=== PATIENT | female | born 2000 | race Caucasian/White ===

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

== ENCOUNTER 2022-08-16 20:52 | Emergency (ER) | payer OTHER ==
[~2022-08-16] VITALS: Ht 162.6 cm; Wt 79.8 kg
[2022-08-16 21:10] VITALS: BP_SYST 135
--- NOTE | 2022-08-16 21:19 | NUR ---
Patient to ER bed 8 to gown for evaluation. Side rails up.
--- NOTE | 2022-08-16 21:36 | NUR ---
ER at bedside examining patient.
[2022-08-16] MEDS ORDERED: IBUP-1971 PO (21:44)
[2022-08-16] MEDS ORDERED: IBUPROFEN 800 MG TABLET PO ONE (21:45)
--- NOTE | 2022-08-16 21:49 | NUR ---
Patient given written and verbal discharge instructions and verbalizes understanding. ER MD discussed with patient the results and treatment provided. Patient in stable condition. ID arm band removed. Rx of Ibuprofen given. Patient educated on pain management and to follow up with PMD. Pain Scale 4/10. Opportunity for questions provided and answered. Medication side effect fact sheet provided.
[2022-08-16 21:50] VITALS: BP_SYST 129
== END 2022-08-16 21:50 | disposition home or self-care (01) ==
LOC: SED 20:52
DX: S93.401A Sprain of unspecified ligament of right ankle, initial encounter (principal); Z79.899 Other long term (current) drug therapy; X58.XXXA Exposure to other specified factors, initial encounter; Y93.89 Activity, other specified; Y92.89 Other specified places as the place of occurrence of the external cause; Y99.8 Other external cause status
CPT/HCPCS: 99283

== ENCOUNTER 2022-12-06 19:59 | Emergency (ER) | payer OTHER ==
[~2022-12-06] VITALS: Ht 162.6 cm; Wt 72.6 kg
[~2022-12-06 19:59] MED LIST: IBUP-1971 PO
[2022-12-06 20:10] VITALS: BP_SYST 126
--- NOTE | 2022-12-06 20:15 | NUR ---
Patient to ER bed 03 to gown for evaluation. Side rails up. Report given to LIANG MCKEON.
--- NOTE | 2022-12-06 20:25 | NUR ---
FIRST CONTACT WITH PT. ASSESSMENT COMPLETED. AWAITING EVAL AND ORDERS.
[2022-12-06] MEDS ORDERED: methylPREDNISolone SOD SUCC/PF 62.5 MG/ML VIAL IM ONE (20:30)
[2022-12-06] MEDS ORDERED: MED4 PO (20:32)
--- NOTE | 2022-12-06 20:59 | NUR ---
MD AT BEDSIDE TO DISCUSS DISCHARGE PLANS
--- NOTE | 2022-12-06 21:00 | NUR ---
Patient given written and verbal discharge instructions and verbalizes understanding. ER MD GERONIMO discussed with patient the results and treatment provided. Patient in stable condition. ID arm band removed. Rx of MEDROL given. Patient educated on pain management and to follow up with PMD. Pain Scale . Opportunity for questions provided and answered. Medication side effect fact sheet provided.
[2022-12-06 21:04] VITALS: BP_SYST 122
== END 2022-12-06 21:03 | disposition home or self-care (01) ==
LOC: SED 19:59
DX: T78.40XA Allergy, unspecified, initial encounter (principal); R21 Rash and other nonspecific skin eruption; Z79.899 Other long term (current) drug therapy; X58.XXXA Exposure to other specified factors, initial encounter
CPT/HCPCS: 99283; 96372; J2930